=== PATIENT | male | born 1945 | race Caucasian/White ===

== ENCOUNTER 2022-03-06 13:17 | Outpatient (CLI) | payer MEDICARE | END 2022-03-06 13:18 | disposition home or self-care (01) | LOC: CSHWCC 13:17 | PROVIDERS: ATTEND Nurse Practitioner Family | DX: E11.621 Type 2 diabetes mellitus with foot ulcer (principal); L97.419 Non-pressure chronic ulcer of right heel and midfoot with unspecified severity; R60.0 Localized edema | CPT/HCPCS: 97139; G0463; 99203 ==

== ENCOUNTER 2022-03-11 16:37 | Inpatient (IN) | payer MEDICARE ==
[~2022-03-11 16:37] MED LIST: Iopamidol 370 76% 100 ML VIAL ONE
[2022-03-11 17:15] LABS: #Basophils 0.1 10x3/uL (0.0-0.2); #Eosinphils 0.1 10x3/uL (0.0-0.5); #Neutrophils 6.7 10x3/uL (1.5-8.4); %Basophils 0.6 % (0.0-2.0); %Eosinophils 1.2 % (0.0-6.0); %Lymphocytes 19.7 % (18.0-47.0); %Monocytes 9.9 % (0.0-10.0); %Neutrophils 68.4 % (40.0-75.0); Hemoglobin 13.1 g/dL (13.5-17.5); Mean Corpuscular HGB CONC 32.8 g/dL (32.0-36.0); Mean Corpuscular Hemoglobin 26.8 pg (27.0-33.0); Mean Corpuscular Volume 81.6 fl (81.2-95.1); Mean Platelet Volume 8.4 fl (7.4-10.4); Platelet Count 194 10x3/uL (150-450); RBC Distribution Width 14.7 % (11.5-14.5); Red Blood Cell (RBC) Count 4.89 10x6/uL (4.32-5.72); White Blood Cell (WBC) Count 9.9 10x3/uL (3.5-10.5)
[2022-03-11 17:35] LABS: ALT (SGPT) 22 U/L (8-55); AST (SGOT) 19 U/L (5-34); Albumin 3.7 g/dL (3.4-4.8); Alkaline Phosphatase 102 U/L (40-110); Anion Gap 17 mmol/L (10-20); BUN (Urea Nitrogen) 40 mg/dL (8.4-25.7); Bilirubin, Total 0.6 mg/dL (0.2-1.2); Calc. Creatinine Clearance 0 mL/min (70-130); Calcium 9.1 mg/dL (7.8-10.44); Carbon Dioxide 17 mmol/L (23-31); Chloride 111 mmol/L (98-107); Estimated GFR 56; Globulin 2.7 g/dL (2.4-3.5); Glucose 120 mg/dL (83-110); Lipase 19 U/L (8-78); Potassium 4.4 mmol/L (3.5-5.1); Protein, Total 6.4 g/dL (5.8-8.1); Sodium 141 mmol/L (136-145)
[2022-03-11] MEDS ORDERED: Aspirin 325 MG TAB ONE (17:51)
[2022-03-11] MEDS ORDERED: Nitroglycerin 0.4 MG TAB (25 Tab Bottle) SL PRN (23:16)
[2022-03-12 00:15] LABS: Troponin I Less than 0.010 ng/mL (< 0.028)
[2022-03-12 00:51] LABS: SARS-CoV-2 NAA Rapid Test Not Detected (NotDetected)
[2022-03-12 02:55] LABS: INR-International Normal Ratio 1.1; PTT 31.9 sec (22.0-33.0); Prothrombin Time 12.1 sec (9.5-12.1)
[2022-03-12] MEDS ORDERED: D5 1/2 NS w/20 mEq KCL 1,000 ML ONE (02:57)
[2022-03-12 03:02] LABS: Troponin I 0.015 ng/mL (< 0.028)
[2022-03-12 03:27] VITALS: BMI 37.0
[2022-03-12 04:02] LABS: Anion Gap 18 mmol/L (10-20); BUN (Urea Nitrogen) 39 mg/dL (8.4-25.7); Calc. Creatinine Clearance 114 mL/min (70-130); Calcium 8.8 mg/dL (7.8-10.44); Carbon Dioxide 18 mmol/L (23-31); Cardiac Risk 4.9 (Less than 4.5); Chloride 111 mmol/L (98-107); Cholesterol 146 mg/dl (< 200 Desired); Estimated GFR 67; Glucose 82 mg/dL (83-110); HDL Cholesterol 30 mg/dL (>60 Neg Risk); LDL Cholesterol, Calculated 94 mg/dL; Magnesium 1.7 mg/dL (1.6-2.6); Potassium 4.3 mmol/L (3.5-5.1); Sodium 143 mmol/L (136-145); Triglycerides 109 mg/dL (Less than 150)
[2022-03-12] MEDS ORDERED: Carvedilol 25 MG TAB ONE ×2 (07:45→16:50)
[2022-03-12] MEDS ORDERED: Tamsulosin HCl 0.4 MG CAP ONE (07:45)
[2022-03-12] MEDS ORDERED: Aspirin Chewable 81 MG TAB ONE (07:46)
[2022-03-12] MEDS ORDERED: hydrALAZINE 25 MG TAB ONE (07:47)
[2022-03-12] MEDS ORDERED: metFORMIN 500 MG TAB ONE (07:47)
[2022-03-12] MEDS: Calcium Carbonate 600 MG + Vit D TAB PO SCH (08:12)
[2022-03-12] MEDS: hydrALAZINE 25 MG TAB PO SCH ×2 (08:12→21:00)
[2022-03-12] MEDS: Glimepiride 2 MG TAB PO SCH (08:12)
[2022-03-12] MEDS: Carvedilol 25 MG TAB PO SCH ×2 (08:12→16:54)
[2022-03-12] MEDS: Aspirin Chewable 81 MG TAB PO SCH (08:12)
[2022-03-12] MEDS: Hydrochlorothiazide 25 MG TAB PO SCH (08:13)
[2022-03-12] MEDS: Lisinopril 20 MG TAB PO SCH (08:13)
[2022-03-12] MEDS: Multivit, Therapeutic 1 TAB PO SCH (08:13)
[2022-03-12] MEDS: Linezolid 600 MG TAB PO SCH ×2 (08:13→20:01)
[2022-03-12] MEDS: Tamsulosin HCl 0.4 MG CAP PO SCH (08:13)
[2022-03-12] MEDS ORDERED: metFORMIN 500 MG TAB PO SCH (09:00)
[2022-03-12] MEDS: Amiodarone 200 MG TAB PO SCH ×2 (09:28→20:01)
[2022-03-12] MEDS ORDERED: Dextrose 50% Abboject 50 ML SYRINGE SLOW IVP PRN (10:35)
[2022-03-12] MEDS ORDERED: HumaLOG 300 UNITS/3 ML VIAL SC PRN ×2 (10:35)
[2022-03-12] MEDS ORDERED: Dextrose 5% in Water 1,000 ML IV PRN (10:35)
[2022-03-13 05:09] LABS: #Basophils 0.1 10x3/uL (0.0-0.2); #Eosinphils 0.2 10x3/uL (0.0-0.5); #Neutrophils 5.2 10x3/uL (1.5-8.4); %Basophils 0.7 % (0.0-2.0); %Eosinophils 2.6 % (0.0-6.0); %Lymphocytes 23.4 % (18.0-47.0); %Monocytes 11.8 % (0.0-10.0); %Neutrophils 61.3 % (40.0-75.0); Mean Corpuscular HGB CONC 32.7 g/dL (32.0-36.0); Mean Corpuscular Hemoglobin 26.8 pg (27.0-33.0); Mean Corpuscular Volume 81.9 fl (81.2-95.1); Mean Platelet Volume 8.6 fl (7.4-10.4); Platelet Count 178 10x3/uL (150-450); RBC Distribution Width 14.8 % (11.5-14.5); Red Blood Cell (RBC) Count 4.48 10x6/uL (4.32-5.72); White Blood Cell (WBC) Count 8.5 10x3/uL (3.5-10.5)
[2022-03-13 05:17] LABS: Anion Gap 12 mmol/L (10-20); BUN (Urea Nitrogen) 34 mg/dL (8.4-25.7); Calc. Creatinine Clearance 127 mL/min (70-130); Calcium 9.2 mg/dL (7.8-10.44); Carbon Dioxide 22 mmol/L (23-31); Chloride 108 mmol/L (98-107); Estimated GFR 76; Glucose 78 mg/dL (83-110); Potassium 3.8 mmol/L (3.5-5.1); Sodium 138 mmol/L (136-145)
[2022-03-13] MEDS: Calcium Carbonate 600 MG + Vit D TAB PO SCH (05:55)
[2022-03-13] MEDS: Aspirin Chewable 81 MG TAB PO SCH (05:55)
[2022-03-13] MEDS: Amiodarone 200 MG TAB PO SCH (05:55)
[2022-03-13] MEDS: hydrALAZINE 25 MG TAB PO SCH (05:55)
[2022-03-13] MEDS: Lisinopril 20 MG TAB PO SCH (05:56)
[2022-03-13] MEDS: Tamsulosin HCl 0.4 MG CAP PO SCH (05:57)
[2022-03-13] MEDS: Carvedilol 25 MG TAB PO SCH (05:57)
[2022-03-13] MEDS: Multivit, Therapeutic 1 TAB PO SCH (05:57)
[2022-03-13] MEDS: Hydrochlorothiazide 25 MG TAB PO SCH (08:34)
[2022-03-13] MEDS: Glimepiride 2 MG TAB PO SCH (08:34)
[2022-03-13] MEDS: Linezolid 600 MG TAB PO SCH (08:34)
[2022-03-13 12:32] VITALS: BP 124/56; TEMP 98.1
== END 2022-03-13 13:13 | disposition home or self-care (01) | DRG 310 ==
LOC: CSHERS 16:37 → INTOOBSV 23:44 → CSHERHOLD 23:44 → CSHTELE 03-12 18:30 → OBSVTOIN 03-13 09:55
PROVIDERS: ADMIT Family Medicine; ATTEND Family Medicine
DX: I48.0 Paroxysmal atrial fibrillation (principal); I47.1 Supraventricular tachycardia; E11.621 Type 2 diabetes mellitus with foot ulcer; E66.01 Morbid (severe) obesity due to excess calories; I49.5 Sick sinus syndrome; L97.519 Non-pressure chronic ulcer of other part of right foot with unspecified severity; N40.0 Benign prostatic hyperplasia without lower urinary tract symptoms; E78.5 Hyperlipidemia, unspecified; I10 Essential (primary) hypertension; Z96.653 Presence of artificial knee joint, bilateral; Z88.1 Allergy status to other antibiotic agents; Z95.0 Presence of cardiac pacemaker; Z79.01 Long term (current) use of anticoagulants; Z68.36 Body mass index [BMI] 36.0-36.9, adult; Z80.8 Family history of malignant neoplasm of other organs or systems; Z80.3 Family history of malignant neoplasm of breast; Z79.84 Long term (current) use of oral hypoglycemic drugs; Z98.890 Other specified postprocedural states; Z79.899 Other long term (current) drug therapy; Z88.8 Allergy status to other drugs, medicaments and biological substances; Z87.891 Personal history of nicotine dependence; Z20.822 Contact with and (suspected) exposure to COVID-19
CPT/HCPCS: 36415; 36416; 71045; 71275; 80048; 80053; 80061; 83690; 83735; 84484; 85025; 85610; 85730; 93005; 97139; J3480; Q9967; U0002; U0003; U0005

== ENCOUNTER 2022-03-27 13:52 | Outpatient (CLI) | payer MEDICARE | END 2022-03-27 13:53 | disposition home or self-care (01) | LOC: CSHWCC 13:52 | PROVIDERS: ATTEND Nurse Practitioner Family | DX: E11.621 Type 2 diabetes mellitus with foot ulcer (principal); L97.419 Non-pressure chronic ulcer of right heel and midfoot with unspecified severity; R60.0 Localized edema ==

== ENCOUNTER 2022-04-10 09:03 | Outpatient (CLI) | payer MEDICARE | END 2022-04-10 09:04 | disposition home or self-care (01) | LOC: CSHWCC 09:03 | PROVIDERS: ATTEND Nurse Practitioner Family | DX: E11.621 Type 2 diabetes mellitus with foot ulcer (principal); L97.419 Non-pressure chronic ulcer of right heel and midfoot with unspecified severity; R60.0 Localized edema ==

== ENCOUNTER 2022-04-17 09:19 | Outpatient (CLI) | payer MEDICARE | END 2022-04-17 09:20 | disposition home or self-care (01) | LOC: CSHWCC 09:19 | PROVIDERS: ATTEND Nurse Practitioner Family | DX: L89.896 Pressure-induced deep tissue damage of other site (principal); E11.621 Type 2 diabetes mellitus with foot ulcer; L97.419 Non-pressure chronic ulcer of right heel and midfoot with unspecified severity; R60.0 Localized edema | CPT/HCPCS: 11042; 97607 ==

== ENCOUNTER 2022-04-24 15:19 | Outpatient (CLI) | payer MEDICARE | END 2022-04-24 15:20 | disposition home or self-care (01) | LOC: CSHWCC 15:19 | PROVIDERS: ATTEND Nurse Practitioner Family | DX: L89.896 Pressure-induced deep tissue damage of other site (principal); E11.621 Type 2 diabetes mellitus with foot ulcer; L97.419 Non-pressure chronic ulcer of right heel and midfoot with unspecified severity; R60.0 Localized edema ==

== ENCOUNTER 2022-04-24 16:30 | Inpatient (IN) | payer MEDICARE ==
[2022-04-24 17:14] LABS: #Monocytes 1.2 10x3/uL (0.0-1.1); #Neutrophils 11.8 10x3/uL (1.5-8.4); %Basophils 0.1 % (0.0-2.0); %Eosinophils 0.1 % (0.0-6.0); %Lymphocytes 5.1 % (18.0-47.0); %Monocytes 8.9 % (0.0-10.0); %Neutrophils 85.2 % (40.0-75.0); Hemoglobin 9.9 g/dL (13.5-17.5); Mean Corpuscular HGB CONC 32.6 g/dL (32.0-36.0); Mean Corpuscular Hemoglobin 27.6 pg (27.0-33.0); Mean Corpuscular Volume 84.7 fl (81.2-95.1); Platelet Count 210 10x3/uL (150-450); RBC Distribution Width 16.3 % (11.5-14.5); Red Blood Cell (RBC) Count 3.59 10x6/uL (4.32-5.72); White Blood Cell (WBC) Count 13.9 10x3/uL (3.5-10.5)
[2022-04-24 17:31] LABS: ALT (SGPT) 17 U/L (8-55); AST (SGOT) 17 U/L (5-34); Albumin 3.2 g/dL (3.4-4.8); Alkaline Phosphatase 87 U/L (40-110); Anion Gap 13 mmol/L (10-20); BUN (Urea Nitrogen) 33 mg/dL (8.4-25.7); Calc. Creatinine Clearance 0 mL/min (70-130); Calcium 8.4 mg/dL (7.8-10.44); Carbon Dioxide 23 mmol/L (23-31); Chloride 106 mmol/L (98-107); Estimated GFR 51; Globulin 2.8 g/dL (2.4-3.5); Glucose 189 mg/dL (83-110); Potassium 4.1 mmol/L (3.5-5.1); Sodium 138 mmol/L (136-145)
[2022-04-24] MEDS ORDERED: Ondansetron PF 4 MG/2 ML Vial IVP PRN (18:39)
[2022-04-24] MEDS ORDERED: Ondansetron ODT 4 MG TAB PO PRN (18:39)
[2022-04-24] MEDS ORDERED: Ampicillin/Sulbactam 3 GM in Sodium Chloride 0.9% 100 ML IVPB SCH (19:15)
[2022-04-24] MEDS ORDERED: VANCOMYCIN 1.75 GM/350 ML BAG 1.75 GM in Premix Bag 1 BAG IVPB SCH (19:15)
[2022-04-24] MEDS ORDERED: Senokot S 8.6-50 MG TAB PO PRN (19:22)
[2022-04-24] MEDS ORDERED: Dextrose 5% in Water 1,000 ML IV PRN (19:22)
[2022-04-24] MEDS ORDERED: HYDROcodone/Acetaminophen 5/325 mg Tablet PO PRN (19:22)
[2022-04-24] MEDS ORDERED: Dextrose 50% Abboject 50 ML SYRINGE SLOW IVP PRN (19:22)
[2022-04-24] MEDS ORDERED: Acetaminophen 325 MG TAB PO PRN (19:22)
[2022-04-24] MEDS ORDERED: Calcium Carbonate 500 MG ChewTAB PO PRN (19:22)
[2022-04-24 19:58] LABS: Troponin I 0.024 ng/mL (< 0.028)
[2022-04-24] MEDS ORDERED: Atorvastatin Calcium 10 MG TAB PO SCH (21:00)
[2022-04-24] MEDS ORDERED: hydrALAZINE 25 MG TAB PO SCH (21:30)
[2022-04-24] MEDS ORDERED: Amiodarone 200 MG TAB PO SCH (21:30)
[2022-04-24] MEDS: Famotidine 20 MG TAB PO SCH (21:50)
[2022-04-24] MEDS: Cefepime 2 GM in Sodium Chloride 0.9% 100 ML IVPB SCH (21:50)
[2022-04-24 23:33] LABS: Troponin I Less than 0.010 ng/mL (< 0.028)
[2022-04-25] MEDS ORDERED: FLU VACC QS2022-23(65YR UP)/PF 240 MCG/0.7 ML SYRINGE IM ONE (03:30)
[2022-04-25 06:07] LABS: #Eosinphils 0.2 10x3/uL (0.0-0.5); #Monocytes 1.2 10x3/uL (0.0-1.1); #Neutrophils 6.9 10x3/uL (1.5-8.4); %Basophils 0.3 % (0.0-2.0); %Eosinophils 1.7 % (0.0-6.0); %Lymphocytes 8.9 % (18.0-47.0); %Monocytes 13.5 % (0.0-10.0); %Neutrophils 75.1 % (40.0-75.0); Hemoglobin 9.2 g/dL (13.5-17.5); Mean Corpuscular HGB CONC 32.6 g/dL (32.0-36.0); Mean Corpuscular Hemoglobin 27.5 pg (27.0-33.0); Mean Corpuscular Volume 84.4 fl (81.2-95.1); Mean Platelet Volume 8.9 fl (7.4-10.4); Platelet Count 197 10x3/uL (150-450); RBC Distribution Width 16.4 % (11.5-14.5); Red Blood Cell (RBC) Count 3.34 10x6/uL (4.32-5.72); White Blood Cell (WBC) Count 9.2 10x3/uL (3.5-10.5)
[2022-04-25 06:14] LABS: Anion Gap 12 mmol/L (10-20); BUN (Urea Nitrogen) 35 mg/dL (8.4-25.7); Calc. Creatinine Clearance 99 mL/min (70-130); Calcium 8.8 mg/dL (7.8-10.44); Carbon Dioxide 25 mmol/L (23-31); Chloride 108 mmol/L (98-107); Estimated GFR 58; Glucose 73 mg/dL (83-110); Sodium 141 mmol/L (136-145)
[2022-04-25] MEDS ORDERED: Ipratropium/Albuterol 3 ML NEB NEB SCH (08:30)
[2022-04-25] MEDS ORDERED: Ipratropium/Albuterol 3 ML NEB NEB PRN (08:30)
[2022-04-25] MEDS ORDERED: Aspirin 81 mg Enteric Coated Tablet PO SCH (09:00)
[2022-04-25] MEDS ORDERED: Vancomycin 1.5 GRAM/300 ML BAG 1.5 GM in Premix Bag 1 BAG IVPB SCH (09:00)
[2022-04-25] MEDS ORDERED: Clopidogrel Bisulfate 75 MG TAB PO SCH (09:00)
[2022-04-25] MEDS: Calcium Carbonate 600 MG + Vit D TAB PO SCH (09:21)
[2022-04-25] MEDS: TICAGRELOR 90 MG TABLET PO SCH ×2 (09:21→21:09)
[2022-04-25] MEDS: Famotidine 20 MG TAB PO SCH ×2 (09:22→21:09)
[2022-04-25] MEDS: Multivit, Therapeutic 1 TAB PO SCH (09:23)
[2022-04-25] MEDS: Carvedilol 25 MG TAB PO SCH ×2 (09:23→16:22)
[2022-04-25] MEDS: Tamsulosin HCl 0.4 MG CAP PO SCH (09:23)
[2022-04-25] MEDS: Apixaban 5 MG TAB PO SCH ×2 (09:24→21:10)
[2022-04-25] MEDS: Glimepiride 2 MG TAB PO SCH (09:24)
[2022-04-25] MEDS: Amiodarone 200 MG TAB PO SCH ×2 (09:26→21:09)
[2022-04-25] MEDS: Cefepime 2 GM in Sodium Chloride 0.9% 100 ML IVPB SCH ×2 (11:26→23:44)
[2022-04-25] MEDS: hydrALAZINE 25 MG TAB PO SCH ×2 (12:12→21:10)
[2022-04-25] MEDS: Lisinopril 20 MG TAB PO SCH (12:13)
[2022-04-25 13:45] LABS: Hemoglobin A1c 5.4 % (4.0-6.0)
[2022-04-25] MEDS: Vancomycin 1.5 GRAM/300 ML BAG 1.5 GM in Premix Bag 1 BAG IVPB SCH (16:16)
[2022-04-25] MEDS ORDERED: VANCOMYCIN 2 GRAM/400 ML BAG 2 GM in Premix Bag 1 BAG IVPB SCH (18:00)
[2022-04-25] MEDS: Atorvastatin Calcium 40 MG TAB PO SCH (21:10)
[2022-04-26] MEDS: Vancomycin 1.5 GRAM/300 ML BAG 1.5 GM in Premix Bag 1 BAG IVPB SCH ×2 (05:15→16:34)
[2022-04-26 06:04] LABS: Anion Gap 13 mmol/L (10-20); BUN (Urea Nitrogen) 31 mg/dL (8.4-25.7); Calc. Creatinine Clearance 117 mL/min (70-130); Calcium 8.8 mg/dL (7.8-10.44); Carbon Dioxide 22 mmol/L (23-31); Chloride 109 mmol/L (98-107); Estimated GFR 70; Glucose 89 mg/dL (83-110); Potassium 3.7 mmol/L (3.5-5.1); Sodium 140 mmol/L (136-145)
[2022-04-26 06:13] LABS: CRP (Inflammatory) 7.11 mg/dL (= or < 0.5)
[2022-04-26 06:23] LABS: Hemoglobin 9.1 g/dL (13.5-17.5); Mean Corpuscular HGB CONC 31.9 g/dL (32.0-36.0); Mean Corpuscular Hemoglobin 27.1 pg (27.0-33.0); Mean Corpuscular Volume 84.8 fl (81.2-95.1); Mean Platelet Volume 9.1 fl (7.4-10.4); Platelet Count 216 10x3/uL (150-450); Red Blood Cell (RBC) Count 3.36 10x6/uL (4.32-5.72); White Blood Cell (WBC) Count 8.8 10x3/uL (3.5-10.5)
[2022-04-26 06:58] LABS: MDiff Complete? YES
[2022-04-26 07:01] LABS: Band 13 % (5-11); Eosinophils 1 % (0-10); Lymphocytes 10 % (21-51); Metamyelocyte 1 % (0-0); Monocytes 12 % (0-10); Neutrophil 63 % (42-75); Platelet Morphology Comment Appears Adequate
[2022-04-26 07:02] LABS: RBC Morphology Normal
[2022-04-26] MEDS: hydrALAZINE 25 MG TAB PO SCH ×2 (09:58→21:18)
[2022-04-26] MEDS: Glimepiride 2 MG TAB PO SCH (09:58)
[2022-04-26] MEDS: Carvedilol 25 MG TAB PO SCH ×2 (09:59→16:34)
[2022-04-26] MEDS: Tamsulosin HCl 0.4 MG CAP PO SCH (09:59)
[2022-04-26] MEDS: Famotidine 20 MG TAB PO SCH ×2 (09:59→21:17)
[2022-04-26] MEDS: Lisinopril 20 MG TAB PO SCH (09:59)
[2022-04-26] MEDS: Multivit, Therapeutic 1 TAB PO SCH (09:59)
[2022-04-26] MEDS: Calcium Carbonate 600 MG + Vit D TAB PO SCH (09:59)
[2022-04-26] MEDS: TICAGRELOR 90 MG TABLET PO SCH ×2 (09:59→21:18)
[2022-04-26] MEDS: Amiodarone 200 MG TAB PO SCH ×2 (09:59→21:17)
[2022-04-26] MEDS: Apixaban 5 MG TAB PO SCH ×2 (09:59→21:17)
[2022-04-26] MEDS: Cefepime 2 GM in Sodium Chloride 0.9% 100 ML IVPB SCH ×2 (11:34→23:59)
[2022-04-26] MEDS: HumaLOG 300 UNITS/3 ML VIAL SC PRN (16:41)
[2022-04-26 18:01] LABS: Vancomycin, Trough 21.5 ug/mL
[2022-04-26] MEDS: Atorvastatin Calcium 40 MG TAB PO SCH (21:18)
[2022-04-27 00:50] LABS: Vancomycin, Random 20.6 ug/mL (See Comment)
[2022-04-27] MEDS: hydrALAZINE 25 MG TAB PO SCH ×2 (09:43→22:12)
[2022-04-27] MEDS: TICAGRELOR 90 MG TABLET PO SCH ×2 (09:46→22:12)
[2022-04-27] MEDS: Glimepiride 2 MG TAB PO SCH (09:47)
[2022-04-27] MEDS: Famotidine 20 MG TAB PO SCH ×2 (09:48→22:12)
[2022-04-27] MEDS: Multivit, Therapeutic 1 TAB PO SCH (09:48)
[2022-04-27] MEDS: Tamsulosin HCl 0.4 MG CAP PO SCH (09:48)
[2022-04-27] MEDS: Carvedilol 25 MG TAB PO SCH ×2 (09:48→15:47)
[2022-04-27] MEDS: Calcium Carbonate 600 MG + Vit D TAB PO SCH (09:48)
[2022-04-27] MEDS: Lisinopril 20 MG TAB PO SCH (09:48)
[2022-04-27] MEDS: Apixaban 5 MG TAB PO SCH ×2 (09:49→22:12)
[2022-04-27] MEDS: Amiodarone 200 MG TAB PO SCH ×2 (09:49→22:12)
[2022-04-27] MEDS: Cefepime 2 GM in Sodium Chloride 0.9% 100 ML IVPB SCH ×2 (11:28→22:07)
[2022-04-27] MEDS: Vancomycin HCl 1 GM in Sodium Chloride 0.9% 250 ML 250 ML IVPB SCH (13:44)
[2022-04-27] MEDS: HumaLOG 300 UNITS/3 ML VIAL SC PRN (16:08)
[2022-04-27] MEDS: Atorvastatin Calcium 40 MG TAB PO SCH (22:12)
[2022-04-28] MEDS: Vancomycin HCl 1 GM in Sodium Chloride 0.9% 250 ML 250 ML IVPB SCH ×2 (03:46→14:27)
[2022-04-28] MEDS: Calcium Carbonate 600 MG + Vit D TAB PO SCH ×2 (09:19→15:15)
[2022-04-28] MEDS: Carvedilol 25 MG TAB PO SCH ×2 (09:19→16:18)
[2022-04-28] MEDS: Multivit, Therapeutic 1 TAB PO SCH (09:19)
[2022-04-28] MEDS: TICAGRELOR 90 MG TABLET PO SCH ×2 (09:19→21:45)
[2022-04-28] MEDS: Amiodarone 200 MG TAB PO SCH ×2 (09:19→21:44)
[2022-04-28] MEDS: Famotidine 20 MG TAB PO SCH ×2 (09:19→21:46)
[2022-04-28] MEDS: Tamsulosin HCl 0.4 MG CAP PO SCH (09:20)
[2022-04-28] MEDS: hydrALAZINE 25 MG TAB PO SCH ×2 (09:20→21:45)
[2022-04-28] MEDS: Apixaban 5 MG TAB PO SCH ×2 (09:20→21:44)
[2022-04-28] MEDS: Lisinopril 20 MG TAB PO SCH (09:20)
[2022-04-28] MEDS: Glimepiride 2 MG TAB PO SCH (09:21)
[2022-04-28] MEDS: HumaLOG 300 UNITS/3 ML VIAL SC PRN (12:43)
[2022-04-28] MEDS: Cefepime 2 GM in Sodium Chloride 0.9% 100 ML IVPB SCH (12:47)
[2022-04-28] MEDS: Atorvastatin Calcium 40 MG TAB PO SCH (21:44)
[2022-04-29] MEDS: Cefepime 2 GM in Sodium Chloride 0.9% 100 ML IVPB SCH ×3 (00:27→22:28)
[2022-04-29 01:12] LABS: Vancomycin, Trough 16.9 ug/mL
[2022-04-29] MEDS: Vancomycin HCl 1 GM in Sodium Chloride 0.9% 250 ML 250 ML IVPB SCH ×2 (03:45→14:30)
[2022-04-29] MEDS: Amiodarone 200 MG TAB PO SCH ×2 (09:00→22:28)
[2022-04-29] MEDS: Lisinopril 20 MG TAB PO SCH (09:00)
[2022-04-29] MEDS: Tamsulosin HCl 0.4 MG CAP PO SCH (09:00)
[2022-04-29] MEDS: Carvedilol 25 MG TAB PO SCH ×2 (09:00→17:33)
[2022-04-29] MEDS: Glimepiride 2 MG TAB PO SCH (09:00)
[2022-04-29] MEDS: Famotidine 20 MG TAB PO SCH ×2 (09:00→22:27)
[2022-04-29] MEDS: Calcium Carbonate 600 MG + Vit D TAB PO SCH (09:00)
[2022-04-29] MEDS: hydrALAZINE 25 MG TAB PO SCH ×2 (09:00→22:27)
[2022-04-29] MEDS: Multivit, Therapeutic 1 TAB PO SCH (09:01)
[2022-04-29] MEDS: TICAGRELOR 90 MG TABLET PO SCH ×2 (09:01→22:27)
[2022-04-29] MEDS: Apixaban 5 MG TAB PO SCH ×2 (09:01→22:28)
[2022-04-29 13:19] VITALS: BMI 37.5
[2022-04-29] MEDS ORDERED: Cefepime 2 GM VIAL ONE (22:09)
[2022-04-29] MEDS: Atorvastatin Calcium 40 MG TAB PO SCH (22:28)
[2022-04-30] MEDS: Vancomycin HCl 1 GM in Sodium Chloride 0.9% 250 ML 250 ML IVPB SCH (02:25)
[2022-04-30] MEDS: Carvedilol 25 MG TAB PO SCH ×2 (06:26→17:27)
[2022-04-30 08:46] LABS: Anion Gap 10 mmol/L (10-20); BUN (Urea Nitrogen) 14 mg/dL (8.4-25.7); Calc. Creatinine Clearance 157 mL/min (70-130); Calcium 8.8 mg/dL (7.8-10.44); Carbon Dioxide 23 mmol/L (23-31); Chloride 111 mmol/L (98-107); Estimated GFR 90; Glucose 122 mg/dL (83-110); Sodium 140 mmol/L (136-145)
[2022-04-30 08:57] LABS: #Basophils 0.1 10x3/uL (0.0-0.2); #Eosinphils 0.4 10x3/uL (0.0-0.5); #Neutrophils 6.7 10x3/uL (1.5-8.4); %Basophils 0.6 % (0.0-2.0); %Eosinophils 3.8 % (0.0-6.0); %Monocytes 10.5 % (0.0-10.0); Hemoglobin 9.5 g/dL (13.5-17.5); Mean Corpuscular HGB CONC 32.3 g/dL (32.0-36.0); Mean Corpuscular Hemoglobin 26.9 pg (27.0-33.0); Mean Corpuscular Volume 83.3 fl (81.2-95.1); Mean Platelet Volume 8.8 fl (7.4-10.4); Platelet Count 269 10x3/uL (150-450); RBC Distribution Width 15.9 % (11.5-14.5); Red Blood Cell (RBC) Count 3.53 10x6/uL (4.32-5.72); White Blood Cell (WBC) Count 9.3 10x3/uL (3.5-10.5)
[2022-04-30] MEDS: Lisinopril 20 MG TAB PO SCH (09:17)
[2022-04-30] MEDS: Multivit, Therapeutic 1 TAB PO SCH (09:17)
[2022-04-30] MEDS: Calcium Carbonate 600 MG + Vit D TAB PO SCH (09:17)
[2022-04-30] MEDS: TICAGRELOR 90 MG TABLET PO SCH ×2 (09:17→22:10)
[2022-04-30] MEDS: Famotidine 20 MG TAB PO SCH ×2 (09:17→22:03)
[2022-04-30] MEDS: hydrALAZINE 25 MG TAB PO SCH ×2 (09:17→22:04)
[2022-04-30] MEDS: Tamsulosin HCl 0.4 MG CAP PO SCH (09:17)
[2022-04-30] MEDS: Amiodarone 200 MG TAB PO SCH ×2 (09:18→22:03)
[2022-04-30] MEDS: Apixaban 5 MG TAB PO SCH ×2 (09:18→22:22)
[2022-04-30] MEDS: Glimepiride 2 MG TAB PO SCH (09:27)
[2022-04-30] MEDS: Cefepime 2 GM in Sodium Chloride 0.9% 100 ML IVPB SCH (13:13)
[2022-04-30 13:21] LABS: Vancomycin, Trough 18.9 ug/mL
[2022-04-30] MEDS: Atorvastatin Calcium 40 MG TAB PO SCH (22:03)
[2022-04-30] MEDS: VANCOMYCIN 1.75 GM/350 ML BAG 1.75 GM in Premix Bag 1 BAG IVPB SCH (22:10)
[2022-05-01] MEDS: Cefepime 2 GM in Sodium Chloride 0.9% 100 ML IVPB SCH ×2 (00:38→13:27)
[2022-05-01] MEDS: Carvedilol 25 MG TAB PO SCH ×2 (06:26→17:01)
[2022-05-01] MEDS: Amiodarone 200 MG TAB PO SCH ×2 (08:52→21:31)
[2022-05-01] MEDS: Glimepiride 2 MG TAB PO SCH (08:52)
[2022-05-01] MEDS: Lisinopril 20 MG TAB PO SCH (08:53)
[2022-05-01] MEDS: hydrALAZINE 25 MG TAB PO SCH ×2 (08:53→21:30)
[2022-05-01] MEDS: TICAGRELOR 90 MG TABLET PO SCH ×2 (08:53→21:31)
[2022-05-01] MEDS: Famotidine 20 MG TAB PO SCH ×2 (08:54→21:31)
[2022-05-01] MEDS: Tamsulosin HCl 0.4 MG CAP PO SCH (08:54)
[2022-05-01] MEDS: Apixaban 5 MG TAB PO SCH ×2 (08:54→21:31)
[2022-05-01] MEDS: Calcium Carbonate 600 MG + Vit D TAB PO SCH (08:55)
[2022-05-01] MEDS: Multivit, Therapeutic 1 TAB PO SCH (08:55)
[2022-05-01] MEDS ORDERED: Lidocaine 1% PF 5 ML VIAL ONE (09:55)
[2022-05-01] MEDS ORDERED: Ertapenem 1 GM in Sodium Chloride 0.9% 100 ML IVPB SCH (14:30)
[2022-05-01] MEDS: Atorvastatin Calcium 40 MG TAB PO SCH (21:31)
[2022-05-01] MEDS: VANCOMYCIN 1.75 GM/350 ML BAG 1.75 GM in Premix Bag 1 BAG IVPB SCH (21:32)
[2022-05-02] MEDS: Cefepime 2 GM in Sodium Chloride 0.9% 100 ML IVPB SCH (01:08)
[2022-05-02 08:51] VITALS: BP 172/78; TEMP 98.4
[2022-05-02] MEDS: Glimepiride 2 MG TAB PO SCH (08:55)
[2022-05-02] MEDS: Carvedilol 25 MG TAB PO SCH (08:56)
[2022-05-02] MEDS: Multivit, Therapeutic 1 TAB PO SCH (08:57)
[2022-05-02] MEDS: Tamsulosin HCl 0.4 MG CAP PO SCH (08:57)
[2022-05-02] MEDS: hydrALAZINE 25 MG TAB PO SCH (08:57)
[2022-05-02] MEDS: Calcium Carbonate 600 MG + Vit D TAB PO SCH (08:58)
[2022-05-02] MEDS: Apixaban 5 MG TAB PO SCH (08:59)
[2022-05-02] MEDS: Lisinopril 20 MG TAB PO SCH (08:59)
[2022-05-02] MEDS: Amiodarone 200 MG TAB PO SCH (09:00)
[2022-05-02] MEDS: TICAGRELOR 90 MG TABLET PO SCH (09:00)
[2022-05-02] MEDS ORDERED: Ertapenem 1 GM in Sodium Chloride 0.9% 100 ML IVPB SCH (09:00)
[2022-05-02] MEDS: Famotidine 20 MG TAB PO SCH (10:18)
== END 2022-05-02 01:00 | disposition home health service (06) | DRG 638 ==
LOC: CSHERS 16:30 → CSHTELE 20:23
PROVIDERS: ADMIT Student in an Organized Health Care Education/Training Program; ATTEND Internal Medicine
PROC: 02HV33Z Insertion of Infusion Device into Superior Vena Cava, Percutaneous Approach (ICD-10-PCS; principal; 2022-05-01)
PROC: B548ZZA Ultrasonography of Superior Vena Cava, Guidance (ICD-10-PCS; 2022-05-01)
DX: E11.69 Type 2 diabetes mellitus with other specified complication (principal); J90 Pleural effusion, not elsewhere classified; L03.115 Cellulitis of right lower limb; L97.419 Non-pressure chronic ulcer of right heel and midfoot with unspecified severity; M86.171 Other acute osteomyelitis, right ankle and foot; E11.621 Type 2 diabetes mellitus with foot ulcer; E11.628 Type 2 diabetes mellitus with other skin complications; R06.02 Shortness of breath; N17.9 Acute kidney failure, unspecified; I10 Essential (primary) hypertension; I25.10 Atherosclerotic heart disease of native coronary artery without angina pectoris; I48.0 Paroxysmal atrial fibrillation; N40.0 Benign prostatic hyperplasia without lower urinary tract symptoms; G47.33 Obstructive sleep apnea (adult) (pediatric); Z96.653 Presence of artificial knee joint, bilateral; I49.5 Sick sinus syndrome; E66.01 Morbid (severe) obesity due to excess calories; F40.240 Claustrophobia; D63.8 Anemia in other chronic diseases classified elsewhere; E11.40 Type 2 diabetes mellitus with diabetic neuropathy, unspecified; B95.2 Enterococcus as the cause of diseases classified elsewhere; Z88.8 Allergy status to other drugs, medicaments and biological substances; Z68.37 Body mass index [BMI] 37.0-37.9, adult; Z79.899 Other long term (current) drug therapy; Z95.0 Presence of cardiac pacemaker; Z95.5 Presence of coronary angioplasty implant and graft; Z86.73 Personal history of transient ischemic attack (TIA), and cerebral infarction without residual deficits; Z80.3 Family history of malignant neoplasm of breast; Z88.1 Allergy status to other antibiotic agents; Z79.84 Long term (current) use of oral hypoglycemic drugs; Z98.41 Cataract extraction status, right eye; Z98.42 Cataract extraction status, left eye; Z98.890 Other specified postprocedural states; Z20.822 Contact with and (suspected) exposure to COVID-19
CPT/HCPCS: 36415; 36416; 36569; 71045; 80048; 80053; 80202; 82565; 83036; 83605; 83880; 84443; 84484; 84520; 85025; 85652; 86140; 87040; 87070; 87077; 87186; 87205; 93005; 93306; 93923; 93970; 94640; 94660; 94760; 96374; 97139; C1751; J0295; J0692; J1335; J1650; J1815; J3370; J3490; J7050; J7620; U0003; U0005

== ENCOUNTER 2022-05-06 14:09 | Outpatient (CLI) | payer MEDICARE | END 2022-05-06 14:10 | disposition home or self-care (01) | LOC: CSHWCC 14:09 | PROVIDERS: ATTEND Nurse Practitioner Family | DX: L89.896 Pressure-induced deep tissue damage of other site (principal); E11.621 Type 2 diabetes mellitus with foot ulcer; L97.511 Non-pressure chronic ulcer of other part of right foot limited to breakdown of skin; L97.419 Non-pressure chronic ulcer of right heel and midfoot with unspecified severity | CPT/HCPCS: 29581; 97607; 99213; G0463 ==

== ENCOUNTER 2022-05-13 13:05 | Outpatient (CLI) | payer MEDICARE | END 2022-05-13 13:06 | disposition home or self-care (01) | LOC: CSHWCC 13:05 | PROVIDERS: ATTEND Nurse Practitioner Family | DX: L89.896 Pressure-induced deep tissue damage of other site (principal); E11.621 Type 2 diabetes mellitus with foot ulcer; L97.419 Non-pressure chronic ulcer of right heel and midfoot with unspecified severity; L97.511 Non-pressure chronic ulcer of other part of right foot limited to breakdown of skin; R60.0 Localized edema | CPT/HCPCS: 29581; 97605 ==

== ENCOUNTER 2022-06-10 13:01 | Outpatient (CLI) | payer MEDICARE | END 2022-06-10 13:02 | disposition home or self-care (01) | LOC: CSHWCC 13:01 | PROVIDERS: ATTEND Nurse Practitioner Family | DX: E11.621 Type 2 diabetes mellitus with foot ulcer (principal); L97.419 Non-pressure chronic ulcer of right heel and midfoot with unspecified severity; R60.0 Localized edema ==

== ENCOUNTER 2022-06-13 09:00 | Outpatient (CLI) | payer MEDICARE | END 2022-06-13 09:01 | disposition home or self-care (01) | LOC: CSHWCC 09:00 | PROVIDERS: ATTEND Nurse Practitioner Family | DX: E11.621 Type 2 diabetes mellitus with foot ulcer (principal); L97.419 Non-pressure chronic ulcer of right heel and midfoot with unspecified severity; R60.0 Localized edema | CPT/HCPCS: 97139; G0463; 99212 ==